=== PATIENT | female | born 1960 ===

== ENCOUNTER → 2017-05-28 | Emergency (ER) | payer OTHER ==
[~2017-05-28] VITALS: Ht 160 cm; Wt 56.7 kg
[~2017-05-28] MED LIST: CATAFLAM50 MG PO; KETO10TA2 PO; NAPR500T14 PO; NORFLEX100MG PO; ORPH100T PO; SEPTRA DS TABLE1 TAB PO
== END | disposition home or self-care (01) ==
LOC: ER 08:35
DX: R07.89 Other chest pain (principal)